=== PATIENT | male | born 1980 | race African-American/Black ===

== ENCOUNTER 2019-03-13 10:35 | Day surgery (SDC) | payer BC ==
[~2019-03-13] VITALS: Ht 180.3 cm; Wt 88.7 kg
[~2019-03-13 10:35] MED LIST: FENTANYL PF 100 MCG/2ML ONE; MIDAZOLAM 1 MG/ML, 2ML ONE
[2019-03-13] MEDS ORDERED: LACTATED RINGERS 1,000 ML IV ONE (10:59)
[2019-03-13] MEDS ORDERED: GABAPENTIN 300 MG CAPSULE PO STA (10:59)
[2019-03-13] MEDS ORDERED: SCOPOLAMINE PATCH, 1.5MG PATCH.TD72 TD STA (10:59)
[2019-03-13] MEDS ORDERED: ACETAMINOPHEN 500 MG TABLET PO STA (10:59)
[2019-03-13] MEDS ORDERED: NO MEDS PER PT (11:11)
[2019-03-13 11:12] VITALS: BP 128/88
[2019-03-13] MEDS ORDERED: PLEASE ENTER ALLERGIES MC SCH (11:30)
[2019-03-13] MEDS ORDERED: PLEASE ENTER HEIGHT AND WEIGHT MC SCH (11:30)
[2019-03-13] MEDS ORDERED: ACETAMINOPHEN 500 MG TABLET ONE (11:33)
[2019-03-13] MEDS ORDERED: GABAPENTIN 300 MG CAPSULE ONE (11:33)
[2019-03-13] MEDS ORDERED: SCOPOLAMINE PATCH, 1.5MG PATCH.TD72 TD ONE (11:33)
[2019-03-13] MEDS ORDERED: BUPIVACAINE/PF-EPI 0.25% 1:200K ONE (11:46)
[2019-03-13] MEDS ORDERED: EPHEDRINE 50 MG/ML, 1ML ONE (12:14)
[2019-03-13] MEDS ORDERED: LIDOCAINE 2% 100MG/5ML SYRINGE ONE (12:14)
[2019-03-13] MEDS ORDERED: CLINDAMYCIN 150 MG/ML, 6ML ONE (12:37)
[2019-03-13] MEDS ORDERED: ONDANSETRON 2MG/ML, 2ML ONE (12:59)
[2019-03-13] MEDS ORDERED: SUCCINYLCHOLINE 20 MG/ML, 10ML ONE (12:59)
[2019-03-13] MEDS ORDERED: CEFAZOLIN 1,000 MG ONE (12:59)
[2019-03-13] MEDS ORDERED: NEOSTIGMINE 1 MG/ML, 10ML ONE (12:59)
[2019-03-13] MEDS ORDERED: GLYCOPYRROLATE 0.2MG/1ML, 5ML ONE (12:59)
[2019-03-13] MEDS ORDERED: ROCURONIUM 10MG/ML,5ML ONE (12:59)
[2019-03-13] MEDS ORDERED: DEXAMETHASONE 4 MG/ML, 1ML ONE (12:59)
[2019-03-13] MEDS ORDERED: PROPOFOL 10 MG/ML, 20ML ONE (12:59)
[2019-03-13] MEDS ORDERED: PROMETHAZINE 25 MG SUPP PR PRN (13:00)
[2019-03-13] MEDS ORDERED: LORazepam 2 MG/ML, 1ML IVPush PRN (13:00)
[2019-03-13] MEDS ORDERED: HYDROmorphone 2 MG/ML, 1ML IVPush PRN (13:00)
[2019-03-13] MEDS ORDERED: ONDANSETRON 2MG/ML, 2ML IV PRN (13:00)
[2019-03-13] MEDS ORDERED: FENTANYL PF 100 MCG/2ML IV PRN (13:00)
[2019-03-13] MEDS ORDERED: ONDANSETRON ODT 8 MG PO PRN (13:00)
[2019-03-13] MEDS ORDERED: OXYcodone 5 MG/5 ML ORAL.SOL UDC PO PRN (13:00)
[2019-03-13] MEDS ORDERED: PROMETHAZINE 25 MG/ML, 1ML IV PRN (13:00)
[2019-03-13] MEDS ORDERED: BACITRACIN 50,000 UNIT ONE (13:54)
[2019-03-13] MEDS ORDERED: FENTANYL PF 100 MCG/2ML ONE (14:00)
== END 2019-03-13 16:12 | disposition home or self-care (01) ==
LOC: OUT 10:35
PROVIDERS: ATTEND Orthopaedic Surgery
DX: S49.81XA Other specified injuries of right shoulder and upper arm, initial encounter (principal); Z72.89 Other problems related to lifestyle; W11.XXXA Fall on and from ladder, initial encounter; Y93.89 Activity, other specified; Y92.89 Other specified places as the place of occurrence of the external cause; Y99.8 Other external cause status
CPT/HCPCS: 23552; 64415; 73020; 76000; C1713; C1762; C1776; J0330; J0690; J1100; J2250; J2405; J2704; J2710; J3010; J7120